=== PATIENT | female | born 1995 | race Hispanic/Latino ===

== ENCOUNTER → 2018-12-11 | Outpatient (CLI) | payer OTHER | END | disposition home or self-care (01) | LOC: OIH 16:01 | PROVIDERS: ATTEND Internal Medicine | DX: I10 Essential (primary) hypertension (principal); R14.0 Abdominal distension (gaseous) | CPT/HCPCS: 71046 ==

== ENCOUNTER → 2020-03-15 | Outpatient (CLI) | payer OTHER | END | disposition home or self-care (01) | LOC: OIH 15:22 | PROVIDERS: ATTEND Internal Medicine | DX: K59.00 Constipation, unspecified (principal) | CPT/HCPCS: 74018 ==